=== PATIENT | male | born 1970 | race Caucasian/White ===

== ENCOUNTER 2016-12-06 19:06 | Emergency (ER) | payer BC ==
[2016-12-06 19:16] VITALS: BP 138/81
--- NOTE | 2016-12-06 19:25 | ED Physician Documentation ---
PD HPI SKIN - Stated complaint Stated Complaint: L SHOULDER RASH - Chief complaint Chief Complaint: Wound - History obtained from History obtained from: Patient - History of Present Illness Timing - onset: Other (10 days of burning painful rash to the left shoulder without clear etiology. No systemic symptoms.) Review of Systems Constitutional: denies: Fever, Chills Cardiac: denies: Chest pain / pressure, Palpitations Respiratory: denies: Dyspnea, Cough PD PAST MEDICAL HISTORY - Past Medical History Past Medical History: No - Present Medications Home Medications: Ambulatory Orders Medication Instructions Recorded Confirmed Acyclovir 800 mg PO 5XD 10 Days 12/06/16 predniSONE [Deltasone] 20 mg PO [id number] #21 tab 12/06/16 - Allergies Allergies/Adverse Reactions: Allergies Allergy/AdvReac Type Severity Reaction Status Date / Time No Known Drug Allergies Allergy Verified 12/06/16 19:15 - Living Situation Living Situation: reports: With spouse/s.o. - Social History Does the pt smoke?: Yes Smoking Status: Current every day smoker PD ED PE NORMAL - Vitals Vital signs reviewed: Yes - General General: Alert and oriented X 3, No acute distress - Neck Neck: Supple, no meningeal sign, No bony TTP - Derm Derm: Other (2 small patches of classic shingles over the left upper bicep) - Neuro Neuro: Alert and oriented X 3, Normal speech - Psych Psych: Normal mood, Normal affect Results - Vitals Vitals: Vital Signs - 24 hr 12/06/16 19:13 Temperature 36.4 C L Heart Rate 74 Respiratory 17 Rate Blood Pressure 138/81 H O2 Saturation 98 Oxygen O2 Source Room air Departure - Departure Disposition: 01 Home, Self Care Clinical Impression: Herpes zoster Qualifiers: Herpes zoster complications: without complications Qualified Code(s): B02.9 - Zoster without complications Condition: Good Record reviewed to determine appropriate education?: Yes Instructions: ED Shingles Prescriptions: Acyclovir 800 mg PO 5XD 10 Days predniSONE [Deltasone] 20 mg PO [id number] #21 tab Comments: Followup with your MD on return home, recheck blood pressure, it was a bit high here tonight. Discharge Date/Time: 12/06/16 19:28
== END 2016-12-06 19:28 | disposition home or self-care (01) ==
LOC: ED 19:06
DX: B02.9 Zoster without complications (principal); R03.0 Elevated blood-pressure reading, without diagnosis of hypertension; F17.200 Nicotine dependence, unspecified, uncomplicated
CPT/HCPCS: 99281; 99283